=== PATIENT | female | born 1985 | race Two or more races ===

== ENCOUNTER 2018-07-06 18:52 | Emergency (ER) | payer OTHER ==
[~2018-07-06] VITALS: Ht 165.1 cm; Wt 77.1 kg
[2018-07-06 19:44] LABS: Urine WBC None Seen /hpf (0 - 5)
[2018-07-06 20:04] LABS: Urine Bacteria NONE SEEN /hpf (None Seen); Urine Blood Negative /uL (Negative); Urine Mucus FEW (None Seen); Urine Specific Gravity 1.031 (1.001-1.035)
[2018-07-06 20:27] LABS: Albumin 3.1 g/dL (3.4-5.0); Basophils # (auto) 0 uL; Calcium 8.4 mg/dL (8.5-10.1); Eosinophils # (auto) 0 uL; Hematocrit 28.6 % (36.0-46.0); Lymphocytes # (auto) 1.8 uL; Magnesium 2.1 mg/dL (1.6-2.6); Monocytes # (auto) 0.4 uL; Nucleated Red Blood Cells % 0.1 %; Potassium 3.6 mmol/L (3.5-5.1); Red Cell Distribution Width 19.5 % (11.8-14.3)
[2018-07-06 20:28] LABS: Basophils % (auto) 0.6 % (0.0-2.0); Eosinophils % (auto) 0.7 % (0.0-7.0); Hemoglobin 9.1 g/dL (12.2-16.2); Lymphocytes % (auto) 25.3 % (10.0-50.0); Mean Corpuscular Hemoglobin 20.1 pg (28.0-32.0); Mean Corpuscular Hgb Conc. 31.7 g/dL (32.0-36.0); Mean Corpuscular Volume 63.4 fL (80.0-100.0); Monocytes % (auto) 4.9 % (0.0-12.0); Neutrophils % (auto) 68.5 % (37.0-80.0); Platelet Count (auto) 334 10^3/uL (140-450); Red Blood Cells 4.52 10^6/uL (4.0-5.20); White Blood Cell 7.2 10^3/uL (4.4-10.8)
[2018-07-06 20:31] LABS: Bilirubin, Total 0.2 mg/dL (0.2-1.0); Total Protein 6.9 g/dL (6.4-8.2)
[2018-07-07 01:59] VITALS: BP 110/58
== END 2018-07-07 02:03 | disposition home or self-care (01) ==
LOC: ER 18:58
DX: O99.511 Diseases of the respiratory system complicating pregnancy, first trimester (principal); O23.91 Unspecified genitourinary tract infection in pregnancy, first trimester; O99.351 Diseases of the nervous system complicating pregnancy, first trimester; O26.891 Other specified pregnancy related conditions, first trimester; R10.30 Lower abdominal pain, unspecified; J45.909 Unspecified asthma, uncomplicated; R42 Dizziness and giddiness; Z3A.08 8 weeks gestation of pregnancy
CPT/HCPCS: 36415; 76775; 76805; 80053; 81001; 81025; 82150; 83690; 83735; 84702; 85025